=== PATIENT | female | born 1980 | race Caucasian/White ===

== ENCOUNTER → 2018-09-06 09:06 | Outpatient (CLI) | payer OTHER, SELFPAY ==
--- NOTE | 2018-09-06 09:09 | MM_ITS ---
MM Dig screening mamm BI w/CAD CAD Screening COMPARISON: His mammograms with CAD 06/10/2016 and additional views right breast 06/25/2016 and 6 month follow-up right breast 12/25/2016 INDICATION: There is a history of breast cancer patient's paternal grandmother and maternal aunt TECHNIQUE: Standard CC and MLO images were obtained. R2 CAD reviewed. FINDINGS: There is a markedly and diffusely dense parenchymal pattern lessening the sensitivity of mammography. There are few benign-appearing microcalcifications in each breast. There is a stable density near the axillary tail right breast likely low-lying node. There is no suspicious lesion and there are no suspicious microcalcifications. Previous ultrasound exam in December 2016 show multiple benign-appearing cysts in the right breast. Stable exam with diffusely dense parenchymal pattern IMPRESSION: BI-RADS Category: 2 Benign Finding(s) RECOMMENDED FOLLOW-UP: 1YR - 1 YEAR FOLLOW-UP (A letter has been sent to the patient regarding results of the study.)
== END ==
PROVIDERS: PCP Family Medicine; Visit Provider Nurse Practitioner Obstetrics & Gynecology
DX: Z12.31 Encounter for screening mammogram for malignant neoplasm of breast (principal)
CPT/HCPCS: 77067

== ENCOUNTER → 2018-09-15 15:13 | Outpatient (CLI) | payer OTHER, SELFPAY ==
--- NOTE | 2018-09-15 15:15 | US_ITS ---
US transvaginal HISTORY: Right lower quadrant pain ITS.REASON: US T/V- RLQP ORDERING PHYSICIAN: Giovanny Wynn MD PATIENT AGE: 38 years Comparison: None FINDINGS: The uterus measures 9 x 4 x 6 cm with a combined endometrial thickness of 4 mm. There is an IUD in place in expected location. No uterine mass evident. The left ovary is 4 x 2 cm and contains multiple small follicles. The right ovary is 5 x 2 cm also containing multiple small follicles. There is blood flow present within both ovaries. No cul-de-sac fluid IMPRESSION: 1. IUD in place. 2. Mildly prominent ovaries with multiple small bilateral follicles. No dominant cyst evident. No cul-de-sac fluid apparent
== END ==
PROVIDERS: PCP Family Medicine; Visit Provider Nurse Practitioner Obstetrics & Gynecology
DX: R10.31 Right lower quadrant pain (principal)
CPT/HCPCS: 76830

== ENCOUNTER → 2019-10-27 09:22 | Outpatient (CLI) | payer BC, SELFPAY ==
--- NOTE | 2019-10-27 09:22 | MM_ITS ---
PROCEDURE: MM DIG SCREENING MAMM BI W/CAD Digital Breast Tomosynthesis Included CLINICAL INDICATION: screening xmg There is a history of breast cancer patient's paternal grandmother and maternal aunt. COMPARISON: DMDXUAVR DIG MAMM-DX UNI A/VW-RT W/CAD from 06/25/2016 DMDXUR DIG MAMM-DX UNI-RT W/CAD from 12/25/2016 [facility] MM Dig screening mamm BI w/CAD from 09/06/2018 TECHNIQUE: Standard CC and MLO images and 3D Tomosynthesis was obtained. R2 CAD reviewed. FINDINGS: Moderate diffuse and heterogenic fibroglandular densities are seen throughout both breasts, primarily upper outer quadrants. Denny images are most helpful in this dense breast parenchyma. There are couple of benign-appearing microcalcifications right breast. There has been some mild fatty involution of the breast parenchyma when compared to the most recent study 09/06/2018. There is no suspicious lesion and no suspicious microcalcifications. IMPRESSION: Diffusely dense parenchymal pattern with no suspicious lesions seen BI-RAD Category: 2 Benign Finding(s) FOLLOW-UP: 1YR 1 Year Follow-up (A letter has been sent to the patient regarding results of the study.) Dictated by: Dr. Tera Butt MD 10/27/2019 10:[address] Tera Butt MD in [place] 10/27/2019 10:10
== END ==
PROVIDERS: PCP Family Medicine; Visit Provider Nurse Practitioner Obstetrics & Gynecology
DX: Z12.31 Encounter for screening mammogram for malignant neoplasm of breast (principal)
CPT/HCPCS: 77063; 77067

== ENCOUNTER → 2020-11-08 09:12 | Outpatient (CLI) | payer BC, SELFPAY ==
--- NOTE | 2020-11-08 09:12 | MM_ITS ---
PROCEDURE: MM DIG SCREENING MAMM BI W/CAD Digital Breast Tomosynthesis Included CLINICAL INDICATION: Routine Screening Mammogram COMPARISON: MG DMSB DIG MAMM-SCREEN NIKKIE W/CAD from 06/10/2016 MG DMDXUAVR DIG MAMM-DX UNI A/VW-RT W/CAD from 06/25/2016 MG DMDXUR DIG MAMM-DX UNI-RT W/CAD from 12/25/2016 MG [facility] MM Dig screening mamm BI w/CAD from 09/06/2018 MG MM DIG SCREENING MAMM BI W/CAD from 10/27/2019 TECHNIQUE: Standard CC and MLO images and 3D Tomosynthesis was obtained. R2 CAD reviewed. FINDINGS: Breast parenchyma is heterogeneously dense which may lower the sensitivity of mammography. Unchanged small focal asymmetry lower inner quadrant right breast. No new dominant mass or indirect evidence of malignancy. No suspicious type microcalcifications. A few scattered benign-appearing calcifications in the right breast again noted. IMPRESSION: Benign bilateral digital screening mammograms. BI-RAD Category: 2 Benign Finding FOLLOW-UP: 1 YR 1 Year Follow-up (A letter has been sent to the patient regarding results of the study.) Dictated by: Navdeep Palumbo MD 11/08/2020 13:00 Navdeep Palumbo MD in [place] 11/08/2020 13:00
== END ==
PROVIDERS: PCP Family Medicine; Visit Provider Nurse Practitioner Obstetrics & Gynecology
DX: Z12.31 Encounter for screening mammogram for malignant neoplasm of breast (principal)
CPT/HCPCS: 77063; 77067

== ENCOUNTER → 2021-11-14 08:27 | Outpatient (CLI) | payer BC, SELFPAY ==
--- NOTE | 2021-11-14 08:29 | MM_ITS ---
PROCEDURE INFORMATION: Exam: MG Bilateral Screening 3D Mammography Exam date and time: 11/14/2021 8:41 AM Age: 41 years old Clinical indication: Screening examination; Additional info: Routine screening mammgram . Family history of breast carcinoma. TECHNIQUE: Imaging protocol: Bilateral Screening tomosynthesis and 2D mammography including computer-aided detection (CAD) when performed. COMPARISON: 1. MG MM DIG SCREENING MAMM BI W/CAD 11/08/2020 9:16 AM 2. MG MM DIG SCREENING MAMM BI W/CAD 10/27/2019 9:30 AM 3. MG [facility] MM Dig screening mamm BI w/CAD 09/06/2018 9:22 AM FINDINGS: MAMMOGRAPHY: Breast composition: The breasts are heterogeneously dense, which may obscure small masses. Mass: No suspicious masses. Architectural distortion: No suspicious distortion. Calcifications: No suspicious calcifications. Asymmetric density: None. Skin thickening: None. Axillary adenopathy: None. IMPRESSION: 1. No mammographic evidence of malignancy. Annual screening is recommended unless otherwise clinically indicated. 2. Given the reported risk factors for this patient, a breast cancer risk assessment may prove useful for further evaluation. ASSESSMENT: BI-RADS Category 1: Negative
== END ==
PROVIDERS: PCP Family Medicine; Visit Provider Nurse Practitioner Obstetrics & Gynecology
DX: Z12.31 Encounter for screening mammogram for malignant neoplasm of breast (principal)
CPT/HCPCS: 77063; 77067

== ENCOUNTER → 2022-11-20 07:58 | Outpatient (CLI) | payer OTHER, SELFPAY ==
--- NOTE | 2022-11-20 07:58 | MM_ITS ---
PROCEDURE INFORMATION: Exam: MG Bilateral Screening 3D Mammography Exam date and time: 11/20/2022 7:48 AM Age: 42 years old Clinical indication: Screening examination TECHNIQUE: Imaging protocol: Bilateral Screening tomosynthesis and 2D mammography including computer-aided detection (CAD) when performed. COMPARISON: 1. MG MM DIG SCREENING MAMM BI W/CAD 11/14/2021 8:41 AM 2. MG MM DIG SCREENING MAMM BI W/CAD 11/08/2020 9:16 AM FINDINGS: MAMMOGRAPHY: Breast composition: The breasts are extremely dense, which lowers the sensitivity of mammography. Mass: None. Architectural distortion: None. Calcifications: No suspicious calcifications. Asymmetric density: None. Skin thickening: None. Axillary adenopathy: None. IMPRESSION: No mammographic evidence of malignancy. Annual screening is recommended unless otherwise clinically indicated. ASSESSMENT: BI-RADS Category 1: Negative
== END ==
PROVIDERS: PCP Family Medicine; Visit Provider Obstetrics & Gynecology
DX: Z12.31 Encounter for screening mammogram for malignant neoplasm of breast (principal); Z80.3 Family history of malignant neoplasm of breast
CPT/HCPCS: 77063; 77067

== ENCOUNTER 2023-11-26 07:46 | Outpatient (CLI) | payer OTHER, SELFPAY ==
--- NOTE | 2023-11-26 07:46 | MM_ITS ---
PROCEDURE INFORMATION: Exam: MG Bilateral Screening 3D Mammography Exam date and time: 11/26/2023 7:34 AM Age: 43 years old Clinical indication: Screening examination TECHNIQUE: Imaging protocol: Bilateral Screening tomosynthesis and 2D mammography including computer-aided detection (CAD) when performed. COMPARISON: 1. MG MM DIG SCREENING MAMM BI W/CAD 11/20/2022 7:48 AM 2. MG MM DIG SCREENING MAMM BI W/CAD 11/14/2021 8:41 AM FINDINGS: MAMMOGRAPHY: Breast composition: The breasts are extremely dense, which lowers the sensitivity of mammography. Mass: None. Architectural distortion: None. Calcifications: No suspicious calcifications. Asymmetric density: None. Skin thickening: None. Axillary adenopathy: None. IMPRESSION: No mammographic evidence of malignancy. Annual screening is recommended unless otherwise clinically indicated. ASSESSMENT: BI-RADS Category 1: Negative
[2023-11-26 09:48] LABS: Basophils # 0.1 K/mm3 (0-0.2); Eosinophils # 0.1 K/mm3 (0.0-0.4); Eosinophils % 1.4 % (0.1-12.0); Hematocrit 39.8 % (37.0-47.0); Hemoglobin 13.6 g/dL (12.2-16.2); Lymphocytes # 2.2 K/mm3 (0.7-4.5); Lymphocytes % 37.9 % (10-50); Mean Corpuscular HGB Conc 34.1 g/dL (31.8-35.4); Mean Corpuscular Hemoglobin 30.8 pg (27.0-31.2); Mean Corpuscular Volume 90.4 fl (81-99); Monocytes # 0.3 K/mm3 (0.1-1.0); Monocytes % 5.3 % (1.7-9.3); Neutrophils # 3.1 K/mm3 (1.8-7.8); Neutrophils % 54.4 % (37.0-80.0); Platelet Count 285 K/mm3 (142-424); Red Cell Distribution Width 13.2 % (11.5-17.5); White Blood Count 5.7 K/mm3 (4.8-10.8)
[2023-11-26 10:05] LABS: Alanine Aminotransferase 44 U/L (12-78); Albumin Level 4.3 g/dl (3.5-5.0); Albumin/Globulin Ratio 1.5 (1.1-1.8); Alkaline Phosphatase 44 U/L (38-126); Anion Gap 8.6 mEq/L (5-15); Aspartate Amino Transferase 32 U/L (14-36); Bilirubin,Total 0.6 mg/dl (0.2-1.3); Blood Urea Nitrogen 10 mg/dl (7-17); Calcium 9.3 mg/dl (8.4-10.2); Carbon Dioxide 26 mmol/L (22.0-30.0); Chloride 108 mmol/L (98-107); Estimated Glomerular Filt Rate 109 ml/min (>60); GFR (African American) 132 ML/MIN (>60); Globulin 2.9 g/dL (1.3-3.2); Glucose 97 mg/dl (74-100); Potassium 4.6 mmoL/L (3.5-5.1); Sodium 138 mmol/L (136-145); Total Protein,Serum 7.2 g/dl (6.3-8.2)
[2023-11-26 10:37] LABS: Thyroid Stimulating Hormone 0.93 uIU/mL (0.465-4.68)
[2023-11-30 14:05] LABS: Chol/HDL Ratio 5.7 (1-3.5); Cholesterol 239 mg/dl (140-200); HDL Cholesterol 42 mg/dl (40-60); Triglycerides 156 mg/dl (30-150); VLDL Cholesterol 31 mg/dL (0-40)
[2023-11-30 14:16] LABS: Direct LDL Cholesterol 153.71 mg/dL (100-129)
== END 2023-11-26 23:59 | disposition home or self-care (01) ==
PROVIDERS: Obstetrics & Gynecology; PCP Obstetrics & Gynecology; Visit Provider Obstetrics & Gynecology
DX: Z12.31 Encounter for screening mammogram for malignant neoplasm of breast (principal); Z01.419 Encounter for gynecological examination (general) (routine) without abnormal findings
CPT/HCPCS: 36415; 77063; 77067; 80050; 80053; 80061; 84443; 85025

== ENCOUNTER 2024-11-27 08:25 | Outpatient (CLI) | payer OTHER, SELFPAY ==
--- NOTE | 2024-11-27 08:28 | MM_ITS ---
PROCEDURE INFORMATION: Exam: MG Bilateral Screening 3D Mammography Exam date and time: 11/27/2024 8:34 AM Age: 44 years old Clinical indication: Screening exam. TECHNIQUE: Imaging protocol: Bilateral Screening tomosynthesis and 2D mammography including computer-aided detection (CAD) when performed. COMPARISON: 1. MG MM DIG SCREENING MAMM BI W/CAD 11/26/2023 7:34 AM 2. MG MM DIG SCREENING MAMM BI W/CAD 11/20/2022 7:48 AM FINDINGS: MAMMOGRAPHY: Breast composition: The breasts are extremely dense, which lowers the sensitivity of mammography. Mass: No suspicious masses. Architectural distortion: None. Calcifications: No suspicious calcifications. Asymmetric density: None. Skin thickening: None. Axillary adenopathy: None. IMPRESSION: No mammographic evidence of malignancy. Annual screening is recommended unless otherwise clinically indicated. ASSESSMENT: BI-RADS Category 1: Negative.
--- OUTSIDE RECORDS SUMMARY | 2024-11-27 08:36 | XMS_ITS | Data Portability ---
Author Organization [facility] REY Song [place] [facility] Address [address] [place] [address] Care Team Providers Care Ticker Installer Name Role Phone [facility] Primary Care Provider Assessment No assessment recorded. Plan of Treatment Reminders Order Date Submit Date Provider Last Modified By Organization Details Last Modified Time Details Appointments None recorded. Lab surgical pathology study [address] [facility], [address] [place] [address], [phone], 11:53:48 Referral None recorded. Procedures None recorded. Surgeries None recorded. Imaging None recorded. Medication Orders None recorded. Patient TargetsNo targets recorded. Patient InstructionsNo instructions recorded. Reason for Referral None Reported. Results Created Date Observation Date Name Description Value Unit Range Abnormal Flag Note LastModifiedBy Organization Detail LastModifiedTime Result Notes None recorded. Procedures Surgical History Date Name Laterality Status Provider Name and Address Organization Details Recorded Time DAK - Biopsy, Tangential completed Carin Shell [facility] 12/06/2023 15:07:44 Imaging Results None recorded. Procedure Notes None recorded. Medical Equipment None Reported. Allergies Allergen ID Allergen Name Allergen Category Reaction Reaction Severity Criticality Documentation Date Start Date Code Code System Note Provider Name and Address Organization Details Recorded Time 758762 Product containin g penicilli n (product) medicatio n hives Not available Not available 12/06/2023 [id number] SNOMED Michelle fenton [facility] 4 15:03:00 Medications Not known to be on any medication Vitals None Recorded Social History None recorded. Functional Status None recorded. Mental Status None recorded. Family History Nothing Reported. Medical History No medical history recorded. Gynecological HistoryNo gynecological history recorded. Obstetrics History GPAL:G 0 P 0 0 0 0 Past Encounters Encounter ID Performer Location Encounter Start Date Encounter Closed Date Diagnosis/Indication Diagnosis SNOMED-CT Code Diagnosis ICD10 Code Diagnosis Note [id number] [place] [address] 12/06/2023 14:44:28 12/10/2023 16:12:16 Neoplasm of uncertain behavior of skin 78739407 D48.5 [facility] [id number] RYLIE SMITH MD [place] [id number] 07/12/2024 14:08:07 07/12/2024 15:30:54 Multiple benign melanocytic nevi 654435529 D22.5 - Benign lesions seen on exam today- SPF 30 or higher broad-spec trum sunscreen recommende d with re-applica tion every 2 hours- Discussed sun protection measures, including wide-brimm ed hat, sun-protec tive clothing, and avoidance of sun during peak hours of 10am-4pm- Instructed to monitor for changes and to call us for appointmen t with any changing or worrisome lesions Seborrheic keratosis 394 193615 L82.1 - Benign overgrowth s of skin - Hereditary Senile angioma 8466213 I 78.1 - Benign blood vessel growths - Hereditary Solar lentigo 57768751 L 81.4 - Benign brown spots - Sun-induce d Health Concerns Section Related Observation LastModified by Organization Detai ls LastModified Time None Recorded Concern Status LastModified by Organization Details LastModified Time None Recorded Advance Directives Directive None Recorded Payers Insurance Date Sequence Insurance Name Policy Number Policy [place] Covered Member ID [place] Member ID Guarantor Name 07/12/2024 2 [facility] [id number] Lizeth Miranda [id number] Lizeth Miranda 07/12/2024 1 [facility] [id number] Lizeth Miranda [id number] Lizeth Miranda Notes Date Note Type Note Provider Name and Address Organization Details Recorded Time 12/06/2023 text/html Pt is here for a spot on the faceNPLast skin check: 03/15No hx of skin cancerAreas of concern: R preauricularDurat ion: January 2023Reports: It's been there since January, it is itchy and has bled once. It wasn't always raised. LEA ELISE PA-C [address] [place], [address], [facility] 12/07/2023 12:35:41 07/12/2024 text/html skin check(no skin cx hx) spots on waistline RYLIE SMITH MD [address] [place], [address], [facility] 07/12/2024 14:40:33 OBGyn Episode No OBEpisode recorded.
== END 2024-11-27 23:59 | disposition home or self-care (01) ==
LOC: RAD 08:25
PROVIDERS: PCP Nurse Practitioner Family; Visit Provider Obstetrics & Gynecology
DX: Z12.31 Encounter for screening mammogram for malignant neoplasm of breast (principal); R92.333 Mammographic heterogeneous density, bilateral breasts
CPT/HCPCS: 77063; 77067